=== PATIENT | female | born 1985 | race Caucasian/White ===

== ENCOUNTER → 2018-06-21 | Outpatient (CLI) | payer BC ==
[2018-06-21 10:14] LABS: HCT 34.3 % (34.0-46.0); HGB 12.1 gm/dL (11.4-16.0); Hyperchromasia Slight; MCH 31.9 pg (25.0-35.0); MCHC 35.2 g/dL (31.0-37.0); MCV 90.5 fL (80.0-100.0); Mean Platelet Volume 7.3; Platelet Count 161 k/uL (150-450); Poikilocytosis Slight; RBC 3.79 m/uL (3.80-5.40); RDW 15.7 % (11.5-15.5); WBC 6.3 k/uL (3.8-10.6)
== END | disposition home or self-care (01) ==
LOC: LABWHC1 09:03
PROVIDERS: ATTEND Obstetrics & Gynecology Obstetrics
DX: O20.0 Threatened abortion (principal); Z3A.00 Weeks of gestation of pregnancy not specified
CPT/HCPCS: 36415; 84702; 85027

== ENCOUNTER → 2018-06-23 | Outpatient (CLI) | payer BC | LOC: LABWHC1 08:40 | PROVIDERS: ATTEND Obstetrics & Gynecology Obstetrics | DX: O20.0 Threatened abortion (principal) | CPT/HCPCS: 36415; 84702; 86850; 86870; 86880; 86900; 86901 ==

== ENCOUNTER → 2018-11-15 | Outpatient (CLI) | payer BC ==
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
== END | disposition home or self-care (01) ==
LOC: RADUSWWP 12:56
PROVIDERS: ATTEND Obstetrics & Gynecology Obstetrics
DX: O09.522 Supervision of elderly multigravida, second trimester (principal); Z3A.25 25 weeks gestation of pregnancy
CPT/HCPCS: 76815

== ENCOUNTER 2019-02-17 08:36 | Inpatient (IN) | payer BC ==
[2019-02-17] MEDS ORDERED: METHYLERGONOVINE 0.2 MG/ML 1 ML AMP IM PRN (11:43)
[2019-02-17] MEDS ORDERED: TERBUTALINE 1 MG/ML VIAL SQ PRN (11:43)
[2019-02-17] MEDS ORDERED: CARBOPROST TROMETHAMINE 250 MCG/ML 1 ML AMP IM PRN (11:43)
[2019-02-17] MEDS ORDERED: OXYTOCIN 10 UNIT/ML 1 ML VIAL IM PRN (11:43)
[2019-02-17] MEDS ORDERED: LIDOCAINE 0.5% (PF) 5 MG/ML (50 ML SDV) SQ PRN (11:43)
[2019-02-17] MEDS ORDERED: OXYTOCIN 30 UNITS/500 ML NS 30 UNIT in SALINE 1 500ML.BAG IV SCH (11:45)
[2019-02-17 11:57] LABS: Anisocytosis Slight; Basophils % (A) 0 %; Eosinophils # (A) 0.1 k/uL (0-0.7); Eosinophils % (A) 1 %; HCT 36.8 % (34.0-46.0); HGB 12.4 gm/dL (11.4-16.0); Hypochromasia Slight; Lymphocytes # (A) 0.8 k/uL (1.0-4.8); Lymphocytes % (A) 15 %; MCHC 33.8 g/dL (31.0-37.0); MCV 91.7 fL (80.0-100.0); Mean Platelet Volume 8.2; Monocytes # (A) 0.2 k/uL (0-1.0); Monocytes % (A) 4 %; Neutrophils # (A) 4.4 k/uL (1.3-7.7); Neutrophils % (A) 78 %; Platelet Count 178 k/uL (150-450); Poikilocytosis Moderate; RBC 4.01 m/uL (3.80-5.40); RDW 17.8 % (11.5-15.5); WBC 5.6 k/uL (3.8-10.6)
--- NOTE | 2019-02-17 12:07 | P.HPOB ---
History of Present Illness H&P Date: 02/17/19 Chief Complaint: IUP at 38-3/7 weeks, labor This is a pleasant 34-year-old 4 para 3003 at 35-3/7 weeks with estimated due date of 02/28. Patient presents with regular painful contractions. Patient denied loss of fluid or vaginal bleeding. Patient has been receiving routine care since the first trimester and has been essentially uncomplicated. Patient does have a history of 37 week deliveries with her prior children this is a different father of the baby. Patient has significant anxiety throughout the without treatment per her request. On blood work she has a blood type of A-, rubella immune RPR nonreactive hepatitis B surface antigen negative HIV negative, GBS was negative in addition. Review of Systems Constitutional: Reports fatigue, Denies chills, Denies fever Ears, nose, mouth and throat: Denies headache Cardiovascular: Reports leg edema Respiratory: Denies dyspnea Gastrointestinal: Denies constipation, Denies diarrhea, Denies nausea, Denies vomiting Genitourinary: Reports Past Medical History History of Any Multi-Drug Resistant Organisms: None Reported Smoking Status: Never smoker Medications and Allergies Home Medications Medication Instructions Recorded Confirmed Type Pnv,Calcium 72/Iron/Folic Acid 1 tab PO DAILY 02/17/19 02/17/19 History [ Plus Tablet] Ranitidine HCl [Zantac] 75 mg PO BID 02/17/19 02/17/19 History Allergies Allergy/AdvReac Type Severity Reaction Status Date / Time No Known Allergies Allergy Verified 02/17/19 09:06 Exam Osteopathic Statement: *. No significant issues noted on an osteopathic structural exam other than those noted in the History and Physical/Consult. 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 heart tones are noted to be category 1 and she is key irregularly. Results Result Diagrams: 02/17/19 11:30 Abnormal Lab Results - Last 24 Hours (Table) 02/17/19 Range/Units 11:30 RDW 17.8 H (11.5-15.5) % Lymphocytes # 0.8 L (1.0-4.8) k/uL Assessment and Plan (1) Term Current Visit: Yes Status: Acute Code(s): Z34.90 - ENCNTR FOR SUPRVSN OF NORMAL , UNSP, UNSP TRIMESTER SNOMED Code(s): 37169810 (2) Active labor Current Visit: Yes Status: Acute Code(s): RCK0902 - SNOMED Code(s): 322664685 Plan: We'll admit to labor and delivery for expectant management, patient is requesting epidural as contractions are uncomfortable. Anticipate spontaneous vaginal delivery later this afternoon.
[2019-02-17] MEDS: LACTATED RINGERS 1,000 ML IV SCH ×2 (12:20→19:48)
[2019-02-17] MEDS ORDERED: ROPIVACAINE 100 MG, fentaNYL (PF) 200 MCG in SODIUM CHLORIDE 0.9% 76 ML EPIDURAL ONE (13:04)
[2019-02-17 13:21] VITALS: BMI 28.1
[2019-02-17] MEDS ORDERED: SIMETHICONE 80 MG CHEWABLE PO PRN (17:31)
[2019-02-17] MEDS ORDERED: WITCH HAZEL 1 EACH MED..PAD TOPICAL PRN (17:31)
[2019-02-17] MEDS ORDERED: diphenhydrAMINE 25 MG CAP PO PRN (17:31)
[2019-02-17] MEDS ORDERED: diphenhydrAMINE 50 MG CAP PO PRN (17:31)
[2019-02-17] MEDS ORDERED: ZOLPIDEM 5 MG TAB PO PRN (17:31)
[2019-02-17] MEDS ORDERED: HYDROcodone/APAP 5-325MG 1 EACH TAB PO PRN (17:31)
[2019-02-17] MEDS ORDERED: BENZOCAINE/MENTHOL SPRAY 1 GM/SPRAY AEROSOL TOPICAL PRN (17:31)
[2019-02-17] MEDS ORDERED: diphenhydrAMINE 50 MG/ML 1 ML VIAL IVP PRN ×2 (17:31)
[2019-02-17] MEDS ORDERED: LANOLIN CREAM 5 GM TUBE TOPICAL PRN (17:31)
[2019-02-17] MEDS ORDERED: HYDROCORTISONE 2.5% RECTAL CREAM 30 GM TUBE RECTAL PRN (17:31)
--- NOTE | 2019-02-17 17:31 | P.PROBDLV ---
Vaginal Delivery Note - . Vaginal Delivery Note: This is a pleasant 34-year-old 4 para 3-103 at 38-3/7 weeks that presented to labor and delivery with regular painful contractions. Patient was admitted to labor and delivery and requested epidural placement by anesthesia. Amniotomy was performed clear fluid was obtained. Patient progressed slowly through labor therefore Pitocin augmentation of labor was begun patient progressed to complete began pushing and had a normal spontaneous vaginal delivery of a viable male at 1713, weight of 8 pounds 3.7 ounces Apgars are pending at this time. After two-minute delayed the umbilical cord was doubly clamped and cut and the placenta was delivered spontaneously intact with three-vessel cord being noted. On inspection the patient's vaginal vault a first-degree vaginal laceration was noted and this was repaired with a [id number] suture of 0 Vicryl. The uterus is noted to be firm and below the umbilicus estimated blood loss 200 mL next para patient and tolerated delivery well ARE correct 2.
[2019-02-17] MEDS ORDERED: OXYTOCIN 20 UNITS/1000 ML NS 1,000 ML IV SCH (17:45)
[2019-02-17] MEDS: IBUPROFEN 600 MG TAB PO PRN (19:38)
[2019-02-17] MEDS: SENNOSIDES-DOCUSATE SODIUM 1 EACH TAB PO SCH (19:39)
[2019-02-17] MEDS: ACETAMINOPHEN TAB 325 MG TAB PO PRN (21:57)
[2019-02-18] MEDS: IBUPROFEN 600 MG TAB PO PRN ×4 (02:34→23:06)
[2019-02-18] MEDS: ACETAMINOPHEN TAB 325 MG TAB PO PRN ×3 (06:00→19:42)
[2019-02-18 07:21] LABS: Anisocytosis Slight; Basophils % (A) 0 %; Eosinophils # (A) 0.1 k/uL (0-0.7); Eosinophils % (A) 1 %; HCT 31.3 % (34.0-46.0); HGB 10.8 gm/dL (11.4-16.0); Hyperchromasia Slight; Lymphocytes # (A) 1.1 k/uL (1.0-4.8); Lymphocytes % (A) 13 %; MCH 30.9 pg (25.0-35.0); MCHC 34.6 g/dL (31.0-37.0); MCV 89.3 fL (80.0-100.0); Mean Platelet Volume 7.4; Monocytes # (A) 0.5 k/uL (0-1.0); Monocytes % (A) 6 %; Neutrophils # (A) 6.3 k/uL (1.3-7.7); Neutrophils % (A) 78 %; Platelet Count 136 k/uL (150-450); Poikilocytosis Marked; RDW 17.5 % (11.5-15.5); WBC 8.1 k/uL (3.8-10.6)
--- NOTE | 2019-02-18 08:52 | P.DS ---
Providers Date of admission: 02/17/19 11:00 Expected date of discharge: 02/18/19 Attending physician: Ayesha Isaacs Primary care physician: Stated None - Discharge Diagnosis(es) (1) Term Current Visit: Yes Status: Acute (2) Active labor Current Visit: Yes Status: Acute (3) Status post vaginal delivery Current Visit: Yes Status: Acute Hospital Course: This is a pleasant 34-year-old 4 para 3203 at 38-3/7 weeks that presented to labor and delivery with regular painful contractions. Patient was admitted to labor and delivery requesting epidural placement. Patient had epidural placed by the anesthesia Department without difficulty. Amniotomy was performed clear fluid was obtained. Patient progressed to 5 cm contractions were noted to be irregular, Pitocin augmentation of labor was begun. Patient progressed to complete began pushing and had a normal spontaneous vaginal delivery of a viable male at 1713 weight of 8 pounds 3.7 ounces. Patient did sustain a first 3 vaginal laceration which was repaired with a aqrran-[id number] suture of 0 Vicryl. Patient's course has been uneventful. She is a bleeding and voiding without difficulty. She is complaining of some hip/groin discomfort since delivery. She is able to ambulate and did take a shower this morning without difficulty. She states her lochia is moderate, she is breast-feeding without difficulty. She wishes discharge home at 24 hours. Patient Condition at Discharge: Good Plan - Discharge Summary Discharge Rx Participant: No New Discharge Prescriptions: No Action Ranitidine HCl [Zantac] 75 mg PO BID Pnv,Calcium 72/Iron/Folic Acid [ Plus Tablet] 1 tab PO DAILY Discharge Medication List Pnv,Calcium 72/Iron/Folic Acid [ Plus Tablet] 1 tab PO DAILY 02/17/19 [History] Ranitidine HCl [Zantac] 75 mg PO BID 02/17/19 [History] Follow up Appointment(s)/Referral(s): Ayesha Isaacs DO [Doctor of Osteopathic Medicine] - 4 Weeks Patient Instructions/Handouts: Vaginal Delivery (DC), Vaginal Delivery (GEN) Discharge Disposition: HOME SELF-CARE
[2019-02-18] MEDS ORDERED: PRENATAL VIT-IRON-FOLIC ACID 1 EACH CAP PO SCH (09:00)
[2019-02-18] MEDS: SENNOSIDES-DOCUSATE SODIUM 1 EACH TAB PO SCH ×2 (09:23→19:42)
[2019-02-19 00:07] VITALS: TEMP 97.6
[2019-02-19] MEDS: IBUPROFEN 600 MG TAB PO PRN (06:58)
[2019-02-19] MEDS: SENNOSIDES-DOCUSATE SODIUM 1 EACH TAB PO SCH (07:36)
[2019-02-19 07:39] VITALS: BP 126/78; PULSE 58; RESP 16
== END 2019-02-19 11:35 | disposition home or self-care (01) | DRG 807 ==
LOC: FBPOP 08:36 → 4FBP 11:00
PROVIDERS: ADMIT Obstetrics & Gynecology Obstetrics; ATTEND Obstetrics & Gynecology Obstetrics
PROC: 10E0XZZ Delivery of Products of Conception, External Approach (ICD-10-PCS; principal; 2019-02-17)
PROC: 00HU33Z Insertion of Infusion Device into Spinal Canal, Percutaneous Approach (ICD-10-PCS; 2019-02-17)
PROC: 3E0R3BZ Introduction of Anesthetic Agent into Spinal Canal, Percutaneous Approach (ICD-10-PCS; 2019-02-17)
PROC: 0HQ9XZZ Repair Perineum Skin, External Approach (ICD-10-PCS; 2019-02-17)
DX: O99.344 Other mental disorders complicating childbirth (principal); Z37.0 Single live birth; F41.9 Anxiety disorder, unspecified; O70.0 First degree perineal laceration during delivery; Z3A.38 38 weeks gestation of pregnancy
CPT/HCPCS: 59025; 85025; 86850; 86900; 86901; 99213

== ENCOUNTER 2019-02-22 20:15 | Inpatient (IN) | payer BC ==
[2019-02-22] MEDS ORDERED: MAGNESIUM SULFATE GM 6 GM in SODIUM CHLORIDE 0.9% 100 ML IVPB ONE (20:26)
[2019-02-22] MEDS ORDERED: LABETALOL 5 MG/ML VIAL MDV IVP STA (20:28)
[2019-02-22] MEDS ORDERED: LORazepam 2 MG/ML INJ IV STA (20:38)
[2019-02-22] MEDS: MAGNESIUM SULFATE-WATER PMX 20 GM in WATER FOR INJECTION 1 500ML.BAG IV SCH (20:54)
[2019-02-22 20:56] LABS: Anisocytosis Slight; Basophils % (A) 0 %; Eosinophils # (A) 0.1 k/uL (0-0.7); Eosinophils % (A) 2 %; HCT 35.6 % (34.0-46.0); HGB 12.4 gm/dL (11.4-16.0); Hyperchromasia Slight; Lymphocytes # (A) 1.1 k/uL (1.0-4.8); Lymphocytes % (A) 21 %; MCH 30.7 pg (25.0-35.0); MCHC 34.7 g/dL (31.0-37.0); MCV 88.5 fL (80.0-100.0); Monocytes # (A) 0.2 k/uL (0-1.0); Monocytes % (A) 4 %; Neutrophils # (A) 3.7 k/uL (1.3-7.7); Neutrophils % (A) 70 %; Platelet Count 189 k/uL (150-450); Poikilocytosis Moderate; RBC 4.02 m/uL (3.80-5.40); RDW 16.8 % (11.5-15.5); WBC 5.3 k/uL (3.8-10.6)
[2019-02-22 21:04] LABS: ALT 24 U/L (9-52); AST 25 U/L (14-36); African American GFR (CKD) >90 (>60 ml/min/1.73 sqM); Blood Urea Nitrogen 7 mg/dL (7-17); LDH 708 U/L (313-618)
[2019-02-22] MEDS ORDERED: SODIUM CHLORIDE 0.9% 1,000 ML IV SCH (21:15)
--- NOTE | 2019-02-22 21:28 | ED ---
General Adult HPI - General Source: patient, RN notes reviewed, old records reviewed Mode of arrival: ambulatory Limitations: no limitations <Silvana Quinones - Last Filed: 02/22/19 22:01> <Abhinav Castañeda - Last Filed: 02/22/19 22:17> - General Chief complaint: Recheck/Abnormal Lab/Rx Stated complaint: High BP Time Seen by Provider: 02/22/19 20:25 - History of Present Illness Initial comments: Patient is a 34-year-old female, 5 days post vaginal delivery, she is a female. Patient delivered at [address] Nelson. She presented today after receiving a steroid injection in her neck for migraines. She complains of severe headache. Her iqbjrn-xq-yjr's a neurologist she took her blood pressure and it was significantly elevated. Discharge emergency department blood pressure was 197/100. Patient complains of a severe headache. She denies any abdominal pain, visual changes at this time. She denies any nausea or vomiting or shortness of breath or chest pain. Patient reports that she had no compli cations before her delivery. (Silvana Quinones) - Related Data Home Medications Medication Instructions Recorded Confirmed Pnv,Calcium 72/Iron/Folic Acid 1 tab PO DAILY 02/17/19 02/17/19 [ Plus Tablet] Ranitidine HCl [Zantac] 75 mg PO BID 02/17/19 02/17/19 Allergies Allergy/AdvReac Type Severity Reaction Status Date / Time No Known Allergies Allergy Verified 02/22/19 20:24 Review of Systems ROS Other: All systems not noted in ROS Statement are negative. <Silvana Quinones - Last Filed: 02/22/19 22:01> ROS Other: All systems not noted in ROS Statement are negative. <Abhinav Castañeda - Last Filed: 02/22/19 22:17> ROS Statement: Those systems with pertinent positive or pertinent negative responses have been documented in the HPI. Past Medical History Past Medical History: No Reported History History of Any Multi-Drug Resistant Organisms: None Reported Past Surgical History: No Surgical Hx Reported Past Anesthesia/Blood Transfusion Reactions: No Reported Reaction Past Psychological History: No Psychological Hx Reported, Depression Smoking Status: Never smoker Past Drug Use History: None Reported - Past Family History Mother History Unknown: Yes Family Medical History: No Reported History Additional Family Medical History / Comment(s): n/a <Silvana Quinones - Last Filed: 02/22/19 22:01> General Exam Limitations: no limitations General appearance: alert, in no apparent distress Head exam: Present: atraumatic Eye exam: Present: normal appearance, PERRL, EOMI. Absent: scleral icterus, conjunctival injection, periorbital swelling ENT exam: Present: normal exam, mucous membranes moist Neck exam: Present: normal inspection. Absent: tenderness, meningismus, lymphadenopathy Respiratory exam: Present: normal lung sounds bilaterally Cardiovascular Exam: Present: regular rate, normal rhythm, normal heart sounds. Absent: systolic murmur, diastolic murmur, rubs, gallop, clicks GI/Abdominal exam: Present: soft, normal bowel sounds. Absent: distended, tenderness, guarding, rebound, rigid Extremities exam: Present: normal inspection, full ROM, normal capillary refill, other (1+ pitting edema bilaterally.). Absent: tenderness, pedal edema, joint swelling, calf tenderness Back exam: Present: normal inspection Neurological exam: Present: alert, oriented X3, CN II-XII intact Psychiatric exam: Present: normal affect, normal mood Skin exam: Present: warm, dry, intact, normal color. Absent: rash <Silvana Quinones - Last Filed: 02/22/19 22:01> - General Exam Comments Initial Comments: This is a 34-year-old female. Patient appears quite anxious, shaking. (Silvana Quinones) Course <Silvana Quinones - Last Filed: 02/22/19 22:01> <Abhinav Castañeda - Last Filed: 02/22/19 22:17> Vital Signs 02/22/19 02/22/19 02/22/19 20:21 20:52 21:03 Temperature 98.0 F Pulse Rate 68 73 72 Respiratory 18 17 Rate Blood Pressure 197/91 192/121 172/107 O2 Sat by Pulse 100 93 L Oximetry 02/22/19 21:18 Temperature Pulse Rate 60 Respiratory 18 Rate Blood Pressure 130/84 O2 Sat by Pulse 96 Oximetry - Reevaluation(s) Reevaluation #1: 02/22/19 21:46 At 2037 I discussed the case with Dr. Christina, he recommended to proceed with preeclampsia workup. And what is awaiting further information want to have lab results. (Lis Quinonesily) Reevaluation #2: 02/22/19 21:46 Patient is reevaluated. She states her headache is diminishing that her blood pressures down. She states it is now 7 out of 10. (Lis Quinonesily) Reevaluation #3: 02/22/19 22:[address] Christina who was informed of patient's lab values. Recommend Patient be admitted for 24 hours of magnesium. Patient was informed of this and is agreeable. (Lis Quinonesily) Reevaluation #4: 02/22/19 22:17 PA supervision: I personally reviewed this case and do agree with the assessment and plan. Dr. Crisostomo was contacted. Patient was admitted. (Abhinav Castañeda) EKG Findings - EKG Comments: EKG Findings:: EKG shows normal sinus rhythm left axis deviation. Abnormal EKG. Ventricular rate is 78 bpm. SD interval is 142 ms. QS duration is 80 ms. QT QTc is 360/419 ms. Poor quality EKG overall this Patient was quite tremulous during this time. <Lis Quinonesily - Last Filed: 02/22/19 22:01> Medical Decision Making - Lab Data Result diagrams: 02/22/19 20:41 02/22/19 20:41 <Silvana Quinones - Last Filed: 02/22/19 22:01> - Lab Data Result diagrams: 02/22/19 20:41 02/22/19 20:41 <Abhinav Castañeda - Last Filed: 02/22/19 22:17> - Medical Decision Making 34-year-old female presents emergency department today 5 days , with chief complaint of severe headache, and elevated blood pressure. Upon arrival blood pressure was elevated 197/100. She is quite anxious as well. She her main complaint is a headache no other significant symptoms. Patient has sat preeclampsia orders completed. She was given magnesium bolus as well as started on maintenance magnesium. After Ativan and one dose of labetalol blood pressure dropped quickly to 130/80. Patient states her headache is now a 7 out of 10 and is improved. Patient case was discussed multiple times with Dr. Christina who recommends admission at this time for 24 hours of magnesium. Patient is agreeable to admission. She states she does want to stay with her . (Silvana Quinones) - Lab Data Lab Results 02/22/19 02/22/19 02/22/19 Range/Units 20:41 20:41 20:41 WBC 5.3 (3.8-10.6) k/uL RBC 4.02 (3.80-5.40) m/uL Hgb 12.4 (11.4-16.0) gm/dL Hct 35.6 (34.0-46.0) % MCV 88.5 (80.0-100.0) fL MCH 30.7 (25.0-35.0) pg MCHC 34.7 (31.0-37.0) g/dL RDW 16.8 H (11.5-15.5) % Plt Count 189 (150-450) k/uL Neutrophils % 70 % Lymphocytes % 21 % Monocytes % 4 % Eosinophils % 2 % Basophils % 0 % Neutrophils # 3.7 (1.3-7.7) k/uL Lymphocytes # 1.1 (1.0-4.8) k/uL Monocytes # 0.2 (0-1.0) k/uL Eosinophils # 0.1 (0-0.7) k/uL Basophils # 0.0 (0-0.2) k/uL Manual Slide Review Performed Hyperchromasia Slight Poikilocytosis Moderate Anisocytosis Slight PT 9.5 (9.0-12.0) sec INR 0.9 (<1.2) APTT 25.0 (22.0-30.0) sec Fibrinogen 365 (200-500) mg/dL BUN 7 (7-17) mg/dL Creatinine 0.61 (0.52-1.04) mg/dL Est GFR (CKD-EPI)AfAm >90 (>60 ml/min/1.73 sqM) Est GFR (CKD-EPI)NonAf >90 (>60 ml/min/1.73 sqM) Uric Acid (3.7-7.4) mg/dL Magnesium 2.0 (1.6-2.3) mg/dL AST 25 (14-36) U/L ALT 24 (9-52) U/L Lactate Dehydrogenase 708 H (313-618) U/L Urine Color Urine Appearance (Clear) Urine pH (5.0-8.0) Ur Specific [place] (1.001-1.035) Urine Protein (Negative) Urine Glucose (UA) (Negative) Urine Ketones (Negative) Urine Blood (Negative) Urine Nitrite (Negative) Urine Bilirubin (Negative) Urine Urobilinogen (<2.0) mg/dL Ur Leukocyte Esterase (Negative) Urine RBC (0-5) /hpf Urine WBC (0-5) /hpf Ur Squamous Epith Cells (0-4) /hpf Urine Mucus (None) /hpf 02/22/19 02/22/19 Range/Units 20:41 21:11 WBC (3.8-10.6) k/uL RBC (3.80-5.40) m/uL Hgb (11.4-16.0) gm/dL Hct (34.0-46.0) % MCV (80.0-100.0) fL MCH (25.0-35.0) pg MCHC (31.0-37.0) g/dL RDW (11.5-15.5) % Plt Count (150-450) k/uL Neutrophils % % Lymphocytes % % Monocytes % % Eosinophils % % Basophils % % Neutrophils # (1.3-7.7) k/uL Lymphocytes # (1.0-4.8) k/uL Monocytes # (0-1.0) k/uL Eosinophils # (0-0.7) k/uL Basophils # (0-0.2) k/uL Manual Slide Review Hyperchromasia Poikilocytosis Anisocytosis PT (9.0-12.0) sec INR (<1.2) APTT (22.0-30.0) sec Fibrinogen (200-500) mg/dL BUN (7-17) mg/dL Creatinine (0.52-1.04) mg/dL Est GFR (CKD-EPI)AfAm (>60 ml/min/1.73 sqM) Est GFR (CKD-EPI)NonAf (>60 ml/min/1.73 sqM) Uric Acid 5.2 (3.7-7.4) mg/dL Magnesium (1.6-2.3) mg/dL AST (14-36) U/L ALT (9-52) U/L Lactate Dehydrogenase (313-618) U/L Urine Color Light Yellow Urine Appearance Clear (Clear) Urine pH 6.5 (5.0-8.0) Ur Specific [place] 1.005 (1.001-1.035) Urine Protein Negative (Negative) Urine Glucose (UA) Negative (Negative) Urine Ketones Negative (Negative) Urine Blood Small H (Negative) Urine Nitrite Negative (Negative) Urine Bilirubin Negative (Negative) Urine Urobilinogen <2.0 (<2.0) mg/dL Ur Leukocyte Esterase Negative (Negative) Urine RBC 1 (0-5) /hpf Urine WBC <1 (0-5) /hpf Ur Squamous Epith Cells 1 (0-4) /hpf Urine Mucus Rare H (None) /hpf Disposition Is patient prescribed a controlled substance at d/c from ED?: No Time of Disposition: 22:03 <Silvana Quinones - Last Filed: 02/22/19 22:01> <Abhinav Castañeda - Last Filed: 02/22/19 22:17> Clinical Impression: Preeclampsia Disposition: ADMITTED IP TO THIS HOSP Condition: Good Referrals: Ale Gallardo MD [Primary Care Provider] - 1-2 days
[2019-02-22 21:40] LABS: INR 0.9 (<1.2); Prothrombin Time 9.5 sec (9.0-12.0)
[2019-02-22 21:48] LABS: Appearance,Urine Clear (Clear); Bilirubin,Urine Negative (Negative); Blood,Urine Small (Negative); Color,Urine Light Yellow; Glucose,Urine (UA) Negative (Negative); Ketones,Urine Negative (Negative); Leukocyte Esterase,Urine Negative (Negative); Mucus,Urine Rare /hpf; Nitrite,Urine Negative (Negative); PH, Urine 6.5 (5.0-8.0); Protein,Urine Negative (Negative); RBC,Urine 1 /hpf (0-5); Specific Gravity,Urine 1.005 (1.001-1.035); Squamous Epithelial Cell,Urine 1 /hpf (0-4); Urobilinogen,Urine <2.0 mg/dL (<2.0); WBC,Urine <1 /hpf (0-5)
[2019-02-22] MEDS ORDERED: IBUPROFEN 400 MG TAB PO PRN (22:04)
[2019-02-22] MEDS ORDERED: NALOXONE 0.4 MG/ML 1 ML VIAL IV PRN (22:04)
[2019-02-22] MEDS ORDERED: ACETAMINOPHEN TAB 325 MG TAB PO PRN (22:04)
[2019-02-22] MEDS ORDERED: KETOROLAC 30 MG/ML 1 ML VIAL IVP STA (22:23)
[2019-02-23] MEDS ORDERED: LORazepam 0.5 MG TAB PO PRN (01:10)
--- NOTE | 2019-02-23 04:49 | P.HPOB ---
History of Present Illness H&P Date: 02/23/19 Chief Complaint: Status post , presumed preeclampsia The patient is a 34-year-old 4 para 4004 who is status post normal spontaneous vaginal delivery late last week. She presented to the emergency room this evening with a complaint of significant headache and had her blood pressure checked at home which was apparently significantly elevated. She pre sented to the emergency room at which time her blood pressure was found to be 197/100. She was admitted through the emergency room with a presumptive diagnosis of preeclampsia. She has also had some fairly significant anxiety over the last week since delivery and reports that occasionally anxiety can elevate her blood pressure as well. In the emergency room, she was treated with labetalol and started on magnesium sulfate with a 6 g bolus to be followed by 2 g per hour and had her blood pressures normalized quickly. Blood pressures have remained stable since admission from the emergency room. Laboratory workup the emergency room demonstrated entirely normal labs. She denies any history of complications during the as regards blood pressures. Obstetrical history: 4 para 4004 with 4 term vaginal deliveries without complications. She is status post normal spontaneous vaginal delivery late last week as noted above. Can clot history: Unremarkable with no history of any infections to include STDs. Review of Systems Review of systems is confined to history of present illness. Past Medical History Past Medical History: No Reported History History of Any Multi-Drug Resistant Organisms: None Reported Past Surgical History: No Surgical Hx Reported Past Anesthesia/Blood Transfusion Reactions: No Reported Reaction Past Psychological History: No Psychological Hx Reported, Depression Additional Psychological History / Comment(s): pp depression Smoking Status: Never smoker Past Alcohol Use History: None Reported Past Drug Use History: None Reported - Past Family History Mother History Unknown: Yes Family Medical History: No Reported History Additional Family Medical History / Comment(s): n/a Medications and Allergies Home Medications Medication Instructions Recorded Confirmed Type Pnv,Calcium 72/Iron/Folic Acid 1 tab PO DAILY 02/17/19 02/22/19 History [ Plus Tablet] Allergies Allergy/AdvReac Type Severity Reaction Status Date / Time shellfish derived [Shellfish] Allergy Swelling Verified 02/22/19 22:18 Exam Vital Signs Temp Pulse Pulse Resp BP BP Pulse Ox 02/23/19 03:10 96.9 F L 83 14 116/71 98 02/23/19 01:26 98.2 F 60 16 143/83 99 02/23/19 01:04 58 L 14 136/76 99 02/23/19 00:49 59 L 14 150/83 02/23/19 00:34 62 14 136/77 02/23/19 00:19 78 14 134/75 02/22/19 22:17 98.6 F 88 18 123/82 99 02/22/19 21:18 60 18 130/84 96 02/22/19 21:03 72 17 172/107 93 L 02/22/19 20:52 73 192/121 02/22/19 20:21 98.0 F 68 18 197/91 100 Intake and Output 02/22/19 02/22/19 02/23/19 14:59 22:59 06:59 Intake Total 1305 Output Total 420 1000 Balance -420 305 Intake: Intake, IV Titration 105 Amount Magnesium Sulfate-Water 105 Pmx 20 gm In Water For Injection 1 500ml.bag @ 2 GM/HR 50 mls/hr IV .Q10H COUNTS INCLUDE 234 BEDS AT THE [facility] Rx#:[id number] Oral 1200 Output: Urine 420 1000 Other: Weight 78.471 kg 78.471 kg General, this is a well-developed, well-nourished white female in no acute distress. Her heart has a regular rhythm and rate without murmur. Her lungs are clear to auscultation bilaterally in all [place]. Her abdomen is nondistended, has normal active bowel sounds, soft, nontender, and without any palpable masses aside from uterine fundus below the umbilicus. Her extremities are without any cyanosis or clubbing though there is mild to moderate the pitting edema below the knee. There also is some degree of hyper reflexivity and clonus present. Results Result Diagrams: 02/22/19 20:41 02/22/19 20:41 Abnormal Lab Results - Last 24 Hours (Table) 02/22/19 02/22/19 02/22/19 Range/Units 20:41 20:41 21:11 RDW 16.8 H (11.5-15.5) % Lactate Dehydrogenase 708 H (313-618) U/L Urine Blood Small H (Negative) Urine Mucus Rare H (None) /hpf Assessment and Plan (1) Status post vaginal delivery Current Visit: No Status: Acute Code(s): XRO1889 - SNOMED Code(s): 992206834 (2) Preeclampsia Current Visit: Yes Status: Acute Code(s): O14.90 - UNSPECIFIED PRE- ECLAMPSIA, UNSPECIFIED TRIMESTER SNOMED Code(s): 532426225 Plan: The patient is admitted for management of preeclampsia. Magnesium sulfate has been started with a 6 g bolus and followed by 2 g per hour. Labs are within normal limits. She will have 24 hours of management with magnesium at which time it will be weaned and blood pressures will be monitored carefully. She otherwise can have regular diet as well as bedrest with bathroom privilege s.
[2019-02-23] MEDS: KETOROLAC 30 MG/ML 1 ML VIAL IVP PRN ×3 (05:48→17:20)
[2019-02-23] MEDS: MAGNESIUM SULFATE-WATER PMX 20 GM in WATER FOR INJECTION 1 500ML.BAG IV SCH (08:13)
[2019-02-23 13:04] LABS: Anisocytosis Slight; HCT 32.6 % (34.0-46.0); HGB 11.2 gm/dL (11.4-16.0); Hyperchromasia Slight; MCH 30.9 pg (25.0-35.0); MCHC 34.4 g/dL (31.0-37.0); MCV 89.9 fL (80.0-100.0); Platelet Count 179 k/uL (150-450); Poikilocytosis Moderate; RBC 3.63 m/uL (3.80-5.40); RDW 16.9 % (11.5-15.5); WBC 5.6 k/uL (3.8-10.6)
[2019-02-23 13:13] LABS: ALT 19 U/L (9-52); AST 22 U/L (14-36); African American GFR (CKD) >90 (>60 ml/min/1.73 sqM); Blood Urea Nitrogen 4 mg/dL (7-17); Uric Acid 4.9 mg/dL (3.7-7.4)
[2019-02-23] MEDS: PANTOPRAZOLE 40 MG/10 ML VIAL IV SCH (17:21)
[2019-02-23] MEDS ORDERED: LACTATED RINGERS 1,000 ML IV SCH (17:30)
[2019-02-23] MEDS ORDERED: NIFEdipine XL 30 MG TAB.ER.24 PO STA (20:06)
[2019-02-23 20:10] VITALS: RESP 16
[2019-02-24] MEDS: KETOROLAC 30 MG/ML 1 ML VIAL IVP PRN ×2 (02:50→07:41)
[2019-02-24] MEDS ORDERED: LABETALOL 100 MG TAB PO SCH (09:00)
[2019-02-24] MEDS ORDERED: ESCITALOPRAM 10 MG TAB PO SCH (09:00)
--- NOTE | 2019-02-24 09:05 | P.PN ---
Subjective Progress Note Date: 02/24/19 Principal diagnosis: day 6, status post normal spontaneous vaginal delivery, preeclampsia. Patient has been overall doing well. She has noted increase in anxiety symptoms since being here. Her blood pressures have been labile 140 to 150s over 80s to 90s. Patient has complained of headache intermittently. She has been receiving Toradol for discomfort. She is nursing. She is eating minimally. She is anxious to go home. Her lochia is minimal at this point. She has been receiving steroid injections for her headache from her [id number] Dr. Stockton. She just informed me this morning. She has a history of headaches in the past in addition. Objective - Vital Signs Vital signs: Vital Signs Temp 98.1 F 02/24/19 08:00 Pulse 82 02/24/19 08:00 Resp 16 02/24/19 08:00 BP 135/86 02/24/19 08:00 Pulse Ox 100 02/24/19 00:00 Intake & Output 02/23/19 02/24/19 02/24/19 18:59 06:59 18:59 Intake Total 395 Output Total 2775 Balance -2380 Intake: Intake, IV Titration 395 Amount Magnesium Sulfate-Water 395 Pmx 20 gm In Water For Injection 1 500ml.bag @ 2 GM/HR 50 mls/hr IV .Q10H LUZ MARINA Rx#:[id number] Output: Urine 2775 Other: # Voids 1 - Constitutional General appearance: Present: average body habitus, cooperative, no acute distress - Respiratory Respiratory: bilateral: CTA - Cardiovascular Rhythm: regular - Gastrointestinal General gastrointestinal: Present: soft. Absent: tenderness - Musculoskeletal Musculoskeletal: Present: gait normal - Psychiatric Psychiatric Comment(s): Anxious in appearance Psychiatric: Present: A&O x's 3 - Labs CBC & Chem 7: 02/23/19 12:40 02/23/19 12:40 Labs: Abnormal Lab Results - Last 24 Hours (Table) 02/23/19 02/23/19 Range/Units 12:40 12:40 RBC 3.63 L (3.80-5.40) m/uL Hgb 11.2 L (11.4-16.0) gm/dL Hct 32.6 L (34.0-46.0) % RDW 16.9 H (11.5-15.5) % BUN 4 L (7-17) mg/dL Assessment and Plan (1) BARBIE (generalized anxiety disorder) Current Visit: Yes Status: Acute Code(s): F41.1 - GENERALIZED ANXIETY DISORDER SNOMED Code(s): 00214120 (2) Preeclampsia Current Visit: Yes Status: Acute Code(s): O14.90 - UNSPECIFIED PRE-ECL AMPSIA, UNSPECIFIED TRIMESTER SNOMED Code(s): 112159804 (3) Status post vaginal delivery Current Visit: No Status: Acute Code(s): QOG1592 - SNOMED Code(s): 147940022 Plan: Patient is started on oral labetalol 100 mg twice daily this morning. In addition she is being placed on Lexapro 10 mg daily for her anxiety. I do feel that her headaches are most likely related to lack of sleep, lack of nutrition, poor oral intake. Patient is counseled on this she is counseled on her anxiety/hypertensive medications that are being started in addition. She is anxious to be discharged home we will monitor over today and if her blood pressures responded nicely to the labetalol we will plan on doing so after dinner. Multiple questions are answered patient states understanding of the plan.
[2019-02-24] MEDS: PANTOPRAZOLE 40 MG/10 ML VIAL IV SCH (09:06)
[2019-02-24 15:43] VITALS: BP 143/89; PULSE 72; TEMP 98.2
--- NOTE | 2019-02-24 16:52 | P.DS ---
Providers Date of admission: 02/22/19 22:16 Expected date of discharge: 02/24/19 Attending physician: Ayesha Isaacs Primary care physician: Ale Gallardo MD - Discharge Diagnosis(es) (1) BARBIE (generalized anxiety disorder) Current Visit: Yes Status: Acute (2) Preeclampsia Current Visit: Yes Status: Acute (3) Status post vaginal delivery Current Visit: No Status: Acute Hospital Course: This 34yo was admitted on 02/22 for presumed preeclampsia. she had significantly elevated BP and was placed on magnesium, she required one dose of labetalol initially. she was then d/c off her magnesium gtt after 24 hours, BP noted 140-150 80-90's. she has anoted HORTON but also struggles with chronic HORTON. she had been receiving OMT/treatment from Dr. Stockton. she has had 2 normal sets of preeclampsia labs. she has made slow improvement over the last few days, she notes her HORTON is better she also struggles with BARBIE, and been untreated throughout the . she has been on lexapro in the past and had requested to restart this recently. she has wonderful family support and is requesting discharge home. I do feel some of her physical symptoms of headach and elevated BP are related to stress of having her readmitted to the hospital and she isnt eating well at all. she is vegetarian but is only eating oatmeal and toast at times. Patient Condition at Discharge: Good Plan - Discharge Summary New Discharge Prescriptions: No Action Pnv,Calcium 72/Iron/Folic Acid [ Plus Tablet] 1 tab PO DAILY Discharge Medication List Pnv,Calcium 72/Iron/Folic Acid [ Plus Tablet] 1 tab PO DAILY 02/17/19 [History] Follow up Appointment(s)/Referral(s): Ale Gallardo MD [Primary Care Provider] - 1-2 days Ayesha Isaacs DO [Doctor of Osteopathic Medicine] - (thu next week for BP check. ) Activity/Diet/Wound Care/Special Instructions: encourage her to stay well hydrated and eat meals throughout the day. she needs to keep her protein intake up so she can continue to breast feed. she can take motrin/ibuprofen 600mg q 6 hours as needed for her HORTON labetalol 100mg bid for BP and we will continue to follow closely. Discharge Disposition: HOME SELF-CARE
== END 2019-02-24 17:00 | disposition home or self-care (01) | DRG 776 ==
LOC: EC 20:15 → 4FBP 22:16
PROVIDERS: ADMIT Obstetrics & Gynecology Obstetrics; ATTEND Obstetrics & Gynecology Obstetrics
DX: O14.95 Unspecified pre-eclampsia, complicating the puerperium (principal); G43.909 Migraine, unspecified, not intractable, without status migrainosus; F41.1 Generalized anxiety disorder; O99.345 Other mental disorders complicating the puerperium; Z91.013 Allergy to seafood
CPT/HCPCS: 36415; 81001; 82565; 83615; 83735; 84450; 84460; 84520; 84550; 85025; 85027; 85384; 85610; 85730; 93005; 96365; 96366; 96375; 99285

== ENCOUNTER → 2019-02-22 | Outpatient (CLI) | payer BC ==
--- NOTE | 2019-02-22 16:12 | US ---
EXAMINATION TYPE: US venous doppler duplex LE RT DATE OF EXAM: 02/22/2019 3:57 PM COMPARISON: NONE CLINICAL HISTORY: M79.661 PAIN IN RT LOWER LIMB. Swelling in right leg. Just had baby on . No redness. SIDE PERFORMED: Right TECHNIQUE: The lower extremity deep venous system is examined utilizing real time linear array sonog kelley with graded compression, doppler sonography and color-flow sonography. VESSELS IMAGED: External Iliac Vein (EIV) Common Femoral Vein Deep Femoral Vein Greater Saphenous Vein * Femoral Vein Popliteal Vein Small Saphenous Vein * Proximal Calf Veins (* superficial vessels) Grayscale, color doppler, spectral doppler imaging performed of the deep veins of the right lower ext remity. There is normal flow, compressibility, vascular waveforms. Right Leg: Negative for DVT IMPRESSION: No sonographic evidence of deep venous thrombosis within the right lower extremity.
== END ==
LOC: RADUSWWP 12:21
PROVIDERS: ATTEND Obstetrics & Gynecology Obstetrics
DX: M79.661 Pain in right lower leg (principal)